=== PATIENT | female | born 1980 | race Caucasian/White ===

== ENCOUNTER → 2016-09-10 | Outpatient (CLI) | payer BC ==
--- NOTE | 2016-09-10 17:05 | CT ---
EXAMINATION TYPE: CT chest w con DATE OF EXAM: 09/10/2016 5:00 PM COMPARISON: NONE HISTORY: Patient complains of chronic unproductive cough. CT DLP: 99.2 mGycm. Automated Exposure Control for Dose Reduction was Utilized. TECHNIQUE: CT scan of the thorax is performed following with IV Contrast, patient injected with 100 mL of Omnipaque 300. FINDINGS: LUNGS: The lungs are predominantly clear, there is no concerning parenchymal mass or nodule identifie d. Some dependent atelectasis in the left lung base is present. There is no pleural effusion or pneu mothorax seen. The tracheobronchial tree is patent. MEDIASTINUM: There are no greater than 1 cm hilar or mediastinal lymph nodes. No cardiomegaly or pe ricardial effusion is seen. OTHER: Heterogeneously dense fibroglandular tissue seen in both breasts. IMPRESSION: No suspicious acute pulmonary process identified. Fairly unremarkable study.
--- NOTE | 2016-09-10 17:08 | CT ---
EXAMINATION TYPE: CT sinus wo con DATE OF EXAM: 09/10/2016 5:02 PM COMPARISON: 05/19/2014 HISTORY: Patient complains of chronic unproductive cough. CT DLP: 697.2 mGycm Automated exposure control for dose reduction was used. FINDINGS: There is osteotomy of the medial connell of the maxillary sinuses. There is fairly normal aeration of t he paranasal sinuses. I see no bony destructive process. Orbital margins are intact. Maxilla is intac t. There is normal aeration of the visualized mastoid sinuses. IMPRESSION: PREVIOUS SURGERY. THERE IS CLEARING OF THE RIGHT MAXILLARY SINUSITIS COMPARED TO OLD EXAM. I SEE NO C OMPLICATING PROCESS. NO EVIDENCE OF SINUSITIS.
== END | disposition home or self-care (01) ==
LOC: RADCTMAIN 16:07
PROVIDERS: ATTEND Internal Medicine
DX: J32.0 Chronic maxillary sinusitis (principal); R05 Cough; Z98.890 Other specified postprocedural states
CPT/HCPCS: 71260; 70486; Q9967

== ENCOUNTER 2016-09-16 10:50 | Day surgery (SDC) | payer BC ==
[2016-09-12 12:15] VITALS: BMI 19.2
[~2016-09-16 10:50] MED LIST: ALBUTEROL NEB (CONC) 2.5 MG/0.5 ML INHALATION ONE; LACTATED RINGERS 1,000 ML IV ONE; LACTATED RINGERS 1,000 ML IV SCH; LIDOCAINE 1% 20 ML VIAL (10MG/ML) FOR IV START INTRADERMA PRN; LIDOCAINE 2% (PF) 20 MG/ML 10ML INHALATION ONE
[2016-09-16 11:15] VITALS: RESP 18; TEMP 98
[2016-09-16] MEDS ORDERED: LACTATED RINGERS 1,000 ML IV ONE (11:18)
[2016-09-16] MEDS ORDERED: LIDOCAINE 1% 20 ML VIAL (10MG/ML) FOR IV START INTRADERMA ONE (11:18)
[2016-09-16] MEDS ORDERED: LIDOCAINE 1% INJ 10MG/ML (20 ML MDV) ONE (11:48)
[2016-09-16] MEDS ORDERED: PROPOFOL 10 MG/ML 20 ML VIAL IV ONE (11:48)
[2016-09-16] MEDS ORDERED: LIDOCAINE 2% (PF) 20 MG/ML 10ML INHALATION ONE (11:56)
[2016-09-16 12:36] VITALS: BP 122/69; PULSE 89
--- NOTE | 2016-09-16 20:48 | PCN ---
DATE OF PROCEDURE: PROCEDURE PERFORMED: Bronchoscopy and airway examination. PREOPERATIVE DIAGNOSIS: Chronic cough. POSTOPERATIVE DIAGNOSIS: Chronic cough. ANESTHESIA USED: Please refer to the [employer] documentation, anesthesia was provided by [employer]. This was IV conscious sedation. DESCRIPTION OF PROCEDURE: Patient was placed in a supine position. O2 was applied via nasal cannula. At the same time, we monitored her O2 saturation continuously. Blood pressure was intermittently monitored. Cardiac rhythm was continuously monitored. After adequate IV conscious sedation, attempts were made to insert the bronchoscope through the right or left naris, however, both nostrils were noted to be extremely narrow and the bronchoscope could not be passed easily. Hence, the bite block was used, and I inserted the bronchoscope through the bite block to the area of the oropharynx and I was able to visualize the vocal cords, pictures of the vocal cords were taken. They were patent. Lidocaine was applied over the vocal cords, and the bronchoscope was advanced further down through the vocal cords to the trachea. Thorough examination was done of the trachea, right upper lobe, right middle lobe, right lower lobe, left upper lobe, lingula, and left lower lobe. Lisa was also examined. There was no evidence of any abnormality noted except for the slight hyperemia of the mucosa throughout. No purulent secretions. No endobronchial tumors, and no evidence of any bleeding anywhere in the airways. The procedure was well tolerated. No evidence of any immediate complications. Considering the normal findings, no biopsies and no washings were done from the airways. Again, procedure was well tolerated and no evidence of any complications.
== END 2016-09-16 13:14 | disposition home or self-care (01) ==
LOC: ORWHC2ENDO 10:50
PROVIDERS: ATTEND Internal Medicine
DX: R05 Cough (principal); J45.991 Cough variant asthma; K21.9 Gastro-esophageal reflux disease without esophagitis; J32.0 Chronic maxillary sinusitis; J30.2 Other seasonal allergic rhinitis; Z87.891 Personal history of nicotine dependence; Z79.899 Other long term (current) drug therapy; Z79.51 Long term (current) use of inhaled steroids
CPT/HCPCS: 94640; 81025; 31622; J2001 ×2; J2704; 31645; 99153

== ENCOUNTER → 2018-10-29 | Outpatient (CLI) | payer BC ==
--- NOTE | 2018-10-29 09:56 | US ---
EXAMINATION TYPE: US thyroid st tissue head/neck DATE OF EXAM: 10/29/2018 COMPARISON: Prior thyroid ultrasound April 11, 2016 CLINICAL HISTORY: E04.2 Nontoxic multinodular goiter. GLAND SIZE: Right Lobe: 5.2 x 2.1 x 2.3 cm Overall Parenchyma: heterogenous Left Lobe: 4.7 x 1.9 x 2.0 cm Overall Parenchyma: heterogeneous Isthmus Thickness: 0.2 cm NODULES RIGHT: # of nodules measured on right: 2 1. 1.3 x 0.9 x 1.0 cm isoechoic solid nodule at the mid pole with well-defined margins. This nodule is wider than tall and shows intranodular vascularity. Prior size: 1.2 x 0.8 x 0.8 cm 2. 0.7 X 0.6 x 0.7 cm anechoic cystic nodule at the lower pole with well-defined margins. This nodu le is wider than tall and shows . Prior size: 0.5 x 0.5 x 0.5 cm LEFT: # of nodules measured on left: 1 1. 0.9 X 0.6 x 0.9 cm anechoic cystic nodule at the lower pole with well-defined margins. This nod ule is wider than tall and shows no intranodular vascularity. No prior. Previous upper cystic nodule not seen on today's exam ISTHMUS: # of nodules measured in the isthmus: 0 Bilateral neck scanned, no evidence of lymphadenopathy. There is redemonstration of heterogeneous multinodular thyroid gland, left-sided cystic likely on taqueria castrejon's study is likely present on prior study images 33 and 34 along inferior margin lower pole. IMPRESSION: Overall stable findings, no new suspicious greater than 1 cm solid or cystic nodules .
== END ==
LOC: RADUSWWP 08:57
PROVIDERS: ATTEND Allergy & Immunology
DX: E04.2 Nontoxic multinodular goiter (principal)
CPT/HCPCS: 76536

== ENCOUNTER 2019-03-29 11:06 | Day surgery (SDC) | payer BC ==
[2019-03-28 08:31] VITALS: BMI 20.5
[~2019-03-29 11:06] MED LIST changes: -ALBUTEROL NEB (CONC) 2.5 MG/0.5 ML INHALATION ONE; -LACTATED RINGERS 1,000 ML IV ONE; -LIDOCAINE 2% (PF) 20 MG/ML 10ML INHALATION ONE
[2019-03-29 11:31] VITALS: RESP 16; TEMP 97.7
[2019-03-29] MEDS ORDERED: PROPOFOL 10 MG/ML 20 ML VIAL IV ONE (13:02)
[2019-03-29] MEDS ORDERED: LIDOCAINE 1% INJ 10MG/ML (20 ML MDV) ONE (13:02)
--- NOTE | 2019-03-29 13:32 | P.PCN ---
Date of Procedure: 03/29/19 Description of Procedure: BRIEF HISTORY: 30-year-old female with symptoms of chronic cough, globus and intermittent solid food dysphagia. Patient has been seen by apprentice instrument technician, money laundering investigator and ENT and is currently receiving treatment for asthma. She is also receiving treatment with ALLERGY shots in the past with no improvement in symptoms. Patient is on ranitidine and omeprazole at home. PROCEDURE PERFORMED: Esophagogastroduodenoscopy with biopsy. PREOPERATIVE DIAGNOSIS: Esophageal dysphagia, GERD, globus. ESTIMATED BLOOD LOSS: Minimal. IV sedation per anesthesia. PROCEDURE: After informed consent was obtained, the patient was brought into the endoscopy unit. IV sedation was administered by Anesthesia under continuous monitoring. Initially the Olympus GIF-190 video endoscope was inserted into the mouth. Esophagus intubated without any difficulty. It was gradually advanced into the stomach and duodenum and carefully examined. The bulb and the second part of the duodenum appeared normal, with Biopsies. The scope at this time was withdrawn to the stomach, adequately insufflated with air, and upon careful examination, mucosa of the antrum, body, cardia and the fundus appeared normal, except for some mild scattered erythema in the antrum and body. Biopsies of the antrum and body were taken. Medium sized hiatal hernia noted. The scope was then withdrawn into the esophagus. The GE junction was located at 41 cm from the incisors. The esophagus appeared normal, with mid esophageal biopsies taken. There were no erosions or ulcerations seen and the patient tolerated the procedure well. IMPRESSION: 1. Mild gastritis antrum body, biopsied. 2. Medium-sized hiatal hernia. 3. Mid esophageal biopsies to rule out EOE. Duodenal biopsies. RECOMMENDATIONS: The findings of this examination were discussed with the patient. Okay to resume diet. Continue current medical management. Await pathology from biopsies. Follow up with gastroenterology as previously scheduled.
[2019-03-29 14:00] VITALS: BP 122/84; PULSE 63
== END 2019-03-29 14:13 | disposition home or self-care (01) ==
LOC: ORWHC2ENDO 11:06
PROVIDERS: ATTEND Internal Medicine
DX: K29.50 Unspecified chronic gastritis without bleeding (principal); K21.9 Gastro-esophageal reflux disease without esophagitis; K44.9 Diaphragmatic hernia without obstruction or gangrene; R13.14 Dysphagia, pharyngoesophageal phase; J44.9 Chronic obstructive pulmonary disease, unspecified; Z79.899 Other long term (current) drug therapy; Z87.891 Personal history of nicotine dependence
CPT/HCPCS: 81025; 88305; 43239; J2001; J2704

== ENCOUNTER → 2019-08-12 | Outpatient (CLI) | payer BC | END | disposition home or self-care (01) | LOC: LABWHC1 13:00 | PROVIDERS: ATTEND Otolaryngology | DX: J30.89 Other allergic rhinitis (principal) | CPT/HCPCS: 36415 ==

== ENCOUNTER → 2020-03-20 | Outpatient (CLI) | payer BC ==
--- NOTE | 2020-03-20 09:37 | MM ---
Reason for exam: clinical finding. History: Family history of breast cancer in maternal aunt at age 50. Took hormonal contraceptives for 12 years. Indicated problem(s): pain in the right breast. Physical Findings: Nurse did not find any significant physical abnormalities on exam. MG Diagnostic Mammo w CAD YENI Bilateral CC and MLO view(s) were taken. Spot compression CC, spot compression MLO, and LM view(s) were taken of the right breast. The breast tissue is extremely dense which could obscure a lesion on mammography. These results were verbally communicated with the patient and result sheet given to the patient on 03/20/20. ASSESSMENT: Benign, BI-RAD 2 RECOMMENDATION: Routine screening mammogram of both breasts in 1 year.
--- NOTE | 2020-03-20 09:39 | USB ---
Reason for exam: clinical finding. History: Family history of breast cancer in maternal aunt at age 50. Took hormonal contraceptives for 12 years. Indicated problem(s): pain in the right breast. US Breast Limited RT Right limited breast ultrasound including focal area of concern, retroareolar and axilla demonstrates a 0.6 x 0.6 x 0.4cm cystic lesion at 6 o'clock, a 1.3 x 1.8 x 0.9cm solid, hypoechoic lesion at 9 o'clock and a 0.7 x 0.8 x 0.9cm hypoechoic lesion at the posterior nipple. These results were verbally communicated with the patient and result sheet given to the patient on 03/20/20. ASSESSMENT: Suspicious, BI-RAD 4 RECOMMENDATION: Ultrasound core biopsy of the right breast. Called Dr. Meehan's office with mammographic findings and has scheduled an appointment for the patient for 04/21/20 at 8:[address] Potter. Biopsy scheduled for 03/27/20 at 10:30. PRELIMINARY REPORT CALLED AND FAXED TO DR. POTTER ON 03/20/20.
== END | disposition home or self-care (01) ==
LOC: RADMAMWWP 07:34
PROVIDERS: ATTEND Obstetrics & Gynecology
DX: N63.10 Unspecified lump in the right breast, unspecified quadrant (principal); N63.20 Unspecified lump in the left breast, unspecified quadrant; N64.4 Mastodynia; Z80.3 Family history of malignant neoplasm of breast
CPT/HCPCS: 77066

== ENCOUNTER → 2020-03-27 | Day surgery (SDC) | payer BC ==
[2020-03-27 09:53] VITALS: RESP 16
[2020-03-27 11:09] VITALS: BP 140/80; PULSE 72; TEMP 98.7
--- NOTE | 2020-03-27 12:46 | USB ---
EXAMINATION TYPE: US biopsy breast VAD RT, MG diagnostic mammo RT wo CAD DATE OF EXAM: 03/27/2020 CLINICAL HISTORY: R92.8 Abn mammogram. Abnormal ultrasound TECHNIQUE: Ultrasound guided core biopsy of right breast with clip placement and follow-up diagnostic 2 view right breast mammogram.. COMPARISON: NONE FINDINGS: The procedure of ultrasound guided core biopsy was explained to the patient. Benefits, alt ernatives, and risks were discussed. An informed consent was then obtained. The patient was placed in supine positioning for imaging and for the procedure. Preprocedure ultraso und shows 9:00 lobulated hypoechoic lesion to have markedly decreased in size without internal vascul arity now measuring 5 to 6 mm long axis versus 18 mm prior study. Patient has background extensive fi brocystic change. Findings are consistent with resolving debris-filled cyst. Sampling of this lesion is deferred. The subareolar round hypoechoic lesion measuring roughly 8 mm is redemonstrated and stab le background extremely dense tissue. The overlying skin was prepped and draped in usual sterile fash ion. Lidocaine is used as anesthetic into the skin and subcutaneous tissue up to area of concern in the right breast. Attempt at ultrasound-guided fine-needle aspiration were unsuccessful due to the ba ckground dense tissue and lesion difficult to penetrate moving away from the needle. At this point bi opsy sampling is chosen. Lidocaine with epinephrine is used as anesthetic into the deeper tissue. Under ultrasound guidance, a vacuum assisted biopsy gun device was used to obtain 2 core samples. Fo llowing this, a biopsy clip was left in the peripheral aspect of lesion. The patient tolerated the procedure well without any immediate complication. The patient was kept in the radiology department for short stay after the procedure and then discharged home in stable condi tion. Post procedure mammogram shows successful deployment of clip subareolar region of right breast. IMPRESSION: Successful, uncomplicated ultrasound guided core biopsy of subareolar area of concern in the right breast, full pathology results to follow. Low index of suspicion noted at time of procedure.
== END ==
LOC: RADUSWWP 09:40
PROVIDERS: ATTEND Surgery
DX: N60.11 Diffuse cystic mastopathy of right breast (principal); N60.21 Fibroadenosis of right breast
CPT/HCPCS: 88305; 77065; 19083; A4648; J2001

== ENCOUNTER → 2020-12-27 | Outpatient (CLI) | payer BC ==
--- NOTE | 2020-12-27 14:04 | USB ---
Reason for exam: clinical finding. History: Family history of breast cancer in maternal aunt at age 50. Benign US biopsy breast VAD RT of the right breast, March 27, 2020. Took hormonal contraceptives for 12 years. Indicated problem(s): palpable abnormality in the right breast. Pain in the left breast. Physical Findings: Nurse Summary: 1cm movable lesion at 12 o'clock right breast (nurse dw). US Breast BILAT Right complete breast ultrasound includes all four quadrants, the retroareolar region and axilla. Finding demonstrates a 1.7 x 1.5 x 1.0cm irregular, mixed, hypoechoic, vascular lesion with adjacent cyst at 12 o'clock, a 0.8 x 0.7 x 0.6cm oval, irregular, mixed, hypoechoic, vascular lesion at 2 o'clock, a 0.6 x 0.5 x 0.3cm oval, irregular, hypoechoic, vascular lesion at 3 o'clock, a 0.6 x 0.4 x 0.3cm oval, irregular, hypoechoic lesion at 6 o'clock, a 1.0 x 0.9 x 0.9cm oval, irregular, clustered, mixed, hypoechoic, vascular lesion at 9 o'clock, a 0.6 x 0.8 x 0.4cm oval, cystic lesion at the posterior nipple and a 1.4 x 0.8 x 0.7cm lymph node at the axilla. Left complete breast ultrasound includes all four quadrants, the retroareolar region and axilla. Finding demonstrates a 1.0 x 0.9 x 0.9cm oval, cystic lesion at 12 o'clock, a 0.9 x 0.8 x 0.6cm oval, cystic lesion at 2 o'clock, a 0.9 x 0.8 x 0.5cm oval, mixed lesion at 2 o'clock and a 0.5 x 0.5 x 0.4cm oval, mixed, hypoechoic lesion at 11 o'clock. These results were verbally communicated with the patient and result sheet given to the patient on 12/27/20. ASSESSMENT: Probably benign, BI-RAD 3 RECOMMENDATION: Ultrasound of both breasts in 6 months.
== END | disposition home or self-care (01) ==
LOC: RADUSWWP 08:48
PROVIDERS: ATTEND Surgery
DX: N60.01 Solitary cyst of right breast (principal); N60.02 Solitary cyst of left breast; Z80.3 Family history of malignant neoplasm of breast

== ENCOUNTER 2024-11-28 19:17 | Emergency (ER) | payer BC ==
--- NOTE | 2024-11-28 19:48 | ED ---
Lower Extremity Injury HPI - General Chief Complaint: Extremity Injury, Lower Stated Complaint: RT foot injury Time Seen by Provider: 11/28/24 19:37 Source: patient, RN notes reviewed Mode of arrival: ambulatory Limitations: no limitations - History of Present Illness Initial Comments: 44-year-old female presents emergency department for complaint of right lateral foot pain. She states that prior to arrival she was walking down her steps when she twisted her ankle and felt a popping and cracking sensation of her foot. Patient states that she has been having pain while applying pressure to ambulate since the injury. Denies falling or hitting her head. No other acute complaints at this time. - Related Data Home Medications Medication Instructions Recorded Confirmed Albuterol Inhaler [Ventolin Hfa 1 - 2 puff INHALATION Q6HR PRN 09/12/16 03/27/20 Inhaler] Allergies Allergy/AdvReac Type Severity Reaction Status Date / Time No Known Allergies Allergy Verified 11/28/24 19:37 Review of Systems ROS Statement: Those systems with pertinent positive or pertinent negative responses have been documented in the HPI. ROS Other: All systems not noted in ROS Statement are negative. Past Medical History Past Medical History: GERD/Reflux, Thyroid Disorder Additional Past Medical History / Comment(s): STATES CHRONIC NON-PRODUCTIVE COUGH FOR APPROX 6 YEARS History of Any Multi-Drug Resistant Organisms: None Reported Past Surgical History: Tonsillectomy Additional Past Surgical History / Comment(s): TONSILLS AT 2 YRS OLD, WISDOM TEETH, SINUS BALLOON SURGERY, BRONCHOSCOPY Past Anesthesia/Blood Transfusion Reactions: Postoperative Nausea & Vomiting (PONV) Additional Past Anesthesia/Blood Transfusion Reaction / Comment(s): STATES COUGHING WHEN DR ROCHA DID BRONCHOSCOPY AND THEY HAD TO GIVE HER MORE SEDATION. Past Psychological History: No Psychological Hx Reported Smoking Status: Former smoker Past Alcohol Use History: Occasional Past Drug Use History: None Reported - Past Family History Father Family Medical History: Congestive Heart Failure (CHF), COPD Additional Family Medical History / Comment(s): ARRYTHMIA, HOLE IN HEART General Exam Limitations: no limitations General appearance: alert, in no apparent distress Respiratory exam: Present: normal lung sounds bilaterally. Absent: respiratory distress, wheezes, rales, rhonchi, stridor Cardiovascular Exam: Present: regular rate, normal rhythm, normal heart sounds. Absent: systolic murmur, diastolic murmur, rubs, gallop, clicks GI/Abdominal exam: Present: soft, normal bowel sounds. Absent: distended, tenderness, guarding, rebound, rigid Right Foot/Toe exam: Present: tenderness, swelling, ecchymosis. Absent: deformity, crepitus, dislocation, erythema Neurovascular tendon exam: Present: no vascular compromise Back exam: Present: normal inspection Course Vital Signs 11/28/24 11/28/24 19:33 21:18 Temperature 98.5 F 98.4 F Pulse Rate 74 67 Respiratory 16 18 Rate Blood Pressure 160/94 158/91 O2 Sat by Pulse 98 100 Oximetry Procedures - Orthopedic Splinting/Casting Injury #1 Side: right Lower Extremity Injury Location: ankle Lower Extremity Immobilizer: Lucian wrap, synthetic pre-padded splint Other Orthopedic Equipment: crutches Medical Decision Making - Medical Decision Making Was pt. sent in by a medical professional or institution (, PA, CABIN OUTFITTER, urgent care, hospital, or longterm...) When possible be specific @ -No Did you speak to anyone other than the patient for history (EMS, parent, family, police, friend...)? What history was obtained from this source @ -No Did you review nursing and triage notes (agree or disagree)? Why? @ -I reviewed and agree with nursing and triage notes Were old charts reviewed (outside hosp., previous admission, EMS record, old EKG, old radiological studies, urgent care reports/EKG's, longterm records)? Report findings @ -No old charts were reviewed Differential Diagnosis (chest pain, altered mental status, abdominal pain women, abdominal pain men, vaginal bleeding, weakness, fever, dyspnea, syncope, headache, dizziness, GI bleed, back pain, seizure, CVA, palpatations, mental health, musculoskeletal)? @ -Differential Musculoskeletal Muscular strain, contusion, ligament sprain, fracture, arthritis, septic arthritis, bursitis, cellulitis, muscle spasm, nerve compression, DVT, arterial occlusion, herpes zoster, electrolyte abnormality, tumor.... This is not meant to be in all inclusive list EKG interpreted by me (3pts min.). @ -None X-rays interpreted by me (1pt min.). @ -X-ray of the right foot reveals an acute fracture through the base of the fifth metatarsal with associated soft tissue swelling CT interpreted by me (1pt min.). @ -None done U/S interpreted by me (1pt. min.). @ -None done What testing was considered but not performed or refused? (CT, X-rays, U/S, labs)? Why? @ -None What meds were considered but not given or refused? Why? @ -None Did you discuss the management of the patient with other professionals (professionals i.e. Dr., PA, CABIN OUTFITTER, lab, RT, psych nurse, psychosocial rehabilitation counselor, counselor camp, teacher, industrial relations officer, gearcase assembler)? Give summary @ -No Was smoking cessation discussed for >3mins.? @ -No Was critical care preformed (if so, how long)? @ -No Were there social determinants of health that impacted care today? How? (Homelessness, low income, unemployed, alcoholism, drug addiction, transportation, low edu. Level, literacy, decrease access to med. care, penitentiary, rehab)? @ -No Was there de-escalation of care discussed even if they declined (Discuss DNR or withdrawal of care, Hospice)? DNR status @ -No What co-morbidities impacted this encounter? (DM, HTN, Smoking, COPD, CAD, Cancer, CVA, ARF, Chemo, Hep., AIDS, mental health diagnosis, sleep apnea, morbid obesity)? @ -None Was patient admitted / discharged? Hospital course, mention meds given and route, prescriptions, significant lab abnormalities, going to OR and other pertinent info. @ -Discharge. 44-year-old female presenting to emergency department with right foot pain. There is noted ecchymosis and edema over the lateral foot. Neurovascularly intact. She divided with dose of Motrin. X-ray reveals a fracture through the base of the fifth metatarsal with associated soft tissue swelling unable to completely exclude Hammond fracture. Patient will be placed in nonweightbearing status provided with crutches and placed in a posterior ankle splint. Provided with referral to invoicing specialist. Case discussed with Dr. Cruz Undiagnosed new problem with uncertain prognosis? @ -No Drug Therapy requiring intensive monitoring for toxicity (Heparin, Nitro, Insulin, Cardizem)? @ -No Were any procedures done? @ -No Diagnosis/symptom? @ -Fifth metatarsal fracture Acute, or Chronic, or Acute on Chronic? @ -Acute Uncomplicated (without systemic symptoms) or Complicated (systemic symptoms)? @ -Uncomplicated Side effects of treatment? @ -No Exacerbation, Progression, or Severe Exacerbation? @ -No Poses a threat to life or bodily function? How? (Chest pain, [place], [place], pneumonia, PE, COPD, DKA, ARF, appy, cholecystitis, CVA, Diverticulitis, Homicidal, Suicidal, threat to staff... and all critical care pts) @ -No Disposition Clinical Impression: Fracture of fifth metatarsal bone Disposition: HOME SELF-CARE Condition: Good Instructions (If sedation given, give patient instructions): Foot Fracture in Adults (ED) Additional Instructions: Please return to the Emergency Department if symptoms worsen or any other concerns. Continue nonweightbearing status using crutches and to follow-up with invoicing specialist. Continue to keep leg elevated and use ice in addition to Tylenol Motrin as needed. Is patient prescribed a controlled substance at d/c from ED?: No Referrals: Marybel Potter MD [Primary Care Provider] - 1-2 days Manny Morejon MD [Medical Doctor] - 1-2 days Time of Disposition: 20:53
[2024-11-28] MEDS: IBUPROFEN 800 MG TAB PO STA (19:53)
--- NOTE | 2024-11-28 20:36 | XR ---
EXAMINATION TYPE: XR ankle complete RT, XR foot complete RT DATE OF EXAM: 11/28/2024 8:10 PM COMPARISON: None CLINICAL INDICATION: Female, 44 years old with history of fall, pain, swelling; PHH, pain TECHNIQUE: XR ankle complete RT, XR foot complete RT; frontal, lateral and oblique projections. FINDINGS: There is a cortical step-off of the base of the fifth metatarsal with soft tissue swelling. No cranial plantar spurring also present. No additional fractures identified. Assess vascular near t he navicular bone present. IMPRESSION: Acute fracture through the base of fifth metatarsal with associated soft tissue swelling. [facility], , 11/28/2024 8:34 PM
[2024-11-28 21:42] VITALS: BP 158/91; PULSE 67; RESP 18; TEMP 98.4
== END 2024-11-28 21:18 | disposition home or self-care (01) ==
LOC: EC 19:17
DX: S92.351A Displaced fracture of fifth metatarsal bone, right foot, initial encounter for closed fracture (principal); Z87.891 Personal history of nicotine dependence; X50.1XXA Overexertion from prolonged static or awkward postures, initial encounter; Y93.01 Activity, walking, marching and hiking
CPT/HCPCS: 29515; 99283

== ENCOUNTER → 2025-01-16 | Outpatient (CLI) | payer BC ==
--- NOTE | 2025-01-16 10:47 | MM ---
Reason for Exam: Screening (asymptomatic). Last mammogram was performed 4 year(s) and 10 month(s) ago. Patient History: Menarche at age 12. First Full-Term at age 28. Currently using Hormonal Contraceptives, for 12 years. 03/27/2020, Benign Core Biopsy on the right side. Maternal aunt had breast cancer, age 50. Last menstrual period: 12/21/2024 Risk Values: Alma 5 year model risk: 1.3%. NCI Lifetime model risk: 12.9%. Prior Study Comparison: 03/20/2020 Bilateral Diagnostic Mammogram, [facility]. 03/27/2020 Right Diagnostic Mammogram, [facility]. Tissue Density: The breasts are heterogeneously dense, which may obscure small masses. Findings: Analyzed By CAD. 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 Overall Assessment: Benign, BI-RAD 2 Management: Screening Mammogram of both breasts in 1 year. . Patient should continue monthly self-breast exams. A clinical breast exam by your physician is recommended on an annual basis. This exam should not preclude additional follow-up of suspicious palpable abnormalities. Note on Alma scores and lifetime risk: 1. A Alma score greater than 3% is considered moderate risk. If this is the case, consider specialist referral to assess eligibility for a risk reducing agent. 2. If overall lifetime risk for the development of breast cancer is 20% or higher, the patient may qualify for future screening with alternating mammogram and breast MRI. [facility], , 01/16/2025 10:44 AM. Electronically signed and approved by: Noel German M.D.
== END | disposition home or self-care (01) ==
LOC: RADMAMWWP 10:00
PROVIDERS: ATTEND Obstetrics & Gynecology
DX: Z12.31 Encounter for screening mammogram for malignant neoplasm of breast (principal); R92.333 Mammographic heterogeneous density, bilateral breasts; Z80.3 Family history of malignant neoplasm of breast; Z92.0 Personal history of contraception
CPT/HCPCS: 77067